=== PATIENT | female | born 1985 | race Caucasian/White ===

== ENCOUNTER 2018-03-13 23:12 | Outpatient (CLI) | payer OTHER | END 2018-03-13 23:13 | disposition critical access hospital (66) | LOC: EMS 23:12 | PROVIDERS: ATTEND Surgery | DX: R45.81 Low self-esteem (principal) | CPT/HCPCS: A0425; A0429 ==

== ENCOUNTER 2018-03-13 23:30 | Emergency (ER) | payer OTHER ==
[2018-03-13 23:57] LABS: MUDS CUTOFF CONCENTRATIONS CUTOFF CONC BELOW:
[2018-03-13 23:58] LABS: BILIRUBIN,URINE NEGATIVE (NEGATIVE); GLUCOSE, URINE (UA) NEGATIVE (NEGATIVE); KETONES,URINE (UA) NEGATIVE (NEGATIVE); LEUKOCYTE ESTERASE, URINE NEGATIVE (NEGATIVE); NITRITE,URINE NEGATIVE (NEGATIVE); OCCULT BLOOD,URINE NEGATIVE (NEGATIVE); PROTEIN,URINE NEGATIVE (NEGATIVE); UROBILINOGEN,URINE 0.2 (NORMAL) E.U./dL (NORMAL)
[2018-03-14] LABS: CLARITY,URINE CLEAR (CLEAR); HCG UR QUAL NEGATIVE
[2018-03-14 00:10] LABS: BASOPHILS # (AUTO) 0.1 10^3/uL (0.0-0.1); BASOPHILS % (AUTO) 0.5 %; EOSINOPHILS # (AUTO) 0.2 10^3/uL (0.0-0.7); EOSINOPHILS % (AUTO) 0.8 %; HGB - HEMOGLOBIN 14.6 g/dL (12.0-16.0); LYMPHOCYTES % (AUTO) 9.2 %; MEAN CORPUSCULAR HEMOGLOBIN 32.2 pg (27.0-31.0); MEAN CORPUSCULAR HGB CONC 34.1 g/dL (32.0-36.0); MEAN CORPUSCULAR VOLUME 94.4 fL (81.0-99.0); MEAN PLATELET VOLUME 7.9 fL (7.9-10.8); MONOCYTES # (AUTO) 1.4 10^3/uL (0.0-1.0); MONOCYTES % (AUTO) 6.5 %; NEUTROPHILS # (AUTO) 17.7 10^3/uL (1.5-6.6); PLT - PLATELET COUNT 292 10^3/uL (130-450); RED BLOOD COUNT 4.54 10^6/uL (4.20-5.40); RED CELL DISTRIBUTION WIDTH 12.6 % (12.0-15.0); WHITE BLOOD COUNT 21.4 x10^3/uL (4.8-10.8)
[2018-03-14 00:11] LABS: AMPHETAMINE SCREEN,URINE NEGATIVE (NEGATIVE); BENZODIAZEPINES SCREEN, URINE NEGATIVE (NEGATIVE); COCAINE SCREEN URINE NEGATIVE (NEGATIVE); METHADONE SCREEN, URINE NEGATIVE (NEGATIVE); METHAMPHETAMINES SCREEN, URINE NEGATIVE (NEGATIVE); OPIATE SCREEN, URINE NEGATIVE (NEGATIVE); OXYCODONE SCREEN, URINE NEGATIVE (NEGATIVE); PROPOXYPHENE SCREEN, URINE NEGATIVE (NEGATIVE); TRICYCLIC ANTIDEPRESSANT,URINE NEGATIVE (NEGATIVE)
[2018-03-14 00:22] LABS: ACETAMINOPHEN < 10 ug/mL (10-30); ALBUMIN 4.5 g/dL (3.2-5.5); ALBUMIN/GLOBULIN RATIO 1.3 (1.0-2.2); ALKALINE PHOSPHATASE 57 IU/L (42-121); ALT ALANINE AMINOTRANSFERASE 17 IU/L (10-60); AST ASPARTATE AMINOTRANSFERASE 22 IU/L (10-42); BILIRUBIN,TOTAL 0.4 mg/dL (0.2-1.0); BUN - BLOOD UREA NITROGEN 6 mg/dL (6-20); CALCIUM 9.1 mg/dL (8.5-10.3); CARBON DIOXIDE - CO2 24 mmol/L (21-32); CHLORIDE 107 mmol/L (101-111); CREATININE 0.6 mg/dL (0.4-1.0); GFR - MDRD 117 (>89); GLUCOSE 96 mg/dL (70-100); LIPASE 23 U/L (22-51); SALICYLATE < 6.0 mg/dL; SODIUM 140 mmol/L (135-145); TOTAL PROTEIN 7.9 g/dL (6.7-8.2)
--- NOTE | 2018-03-14 00:27 | ED Physician Documentation ---
PD HPI OVERDOSE - Stated complaint Stated Complaint: ? OD - Chief complaint Chief Complaint: MHE - History obtained from History obtained from: Patient, Friend, EMS - History of Present Illness Timing - onset: Unknown Subtance(s) ingested: Single, EtOH Associated symptoms: Decreased responsiveness, Altered mental status Similar symptoms before: Has not had sx before Recently seen: Not recently seen - Additional information Additional information: initial HPI from boyfriend and medics; reportedly, she was in a verbal argument (over phone) with boyfriend earlier tonight. she posted to social media a picture of a pill bottle with a caption that vaguely implied intent to self- harm. this post was reportedly then taken down. BF asked patient if she was going to kill herself, and she replied no, then yes. and thus he called 911. patient admits to drinking 6 beers and taking two flexeril, but denies suicidal intent. PD PAST MEDICAL HISTORY - Past Medical History Past Medical History: No - Past Surgical History Past Surgical History: Yes - Present Medications Home Medications: Ambulatory Orders Medication Instructions Recorded Confirmed Cyclobenzaprine [Flexeril] 10 mg PO 03/13/18 Ibuprofen 200 mg PO 03/13/18 Multivitamin [Multiple Vitamins] 1 each PO 03/13/18 - Allergies Allergies/Adverse Reactions: Allergies Allergy/AdvReac Type Severity Reaction Status Date / Time No Known Drug Allergies Allergy Verified 03/13/18 23:38 - Social History Does the pt smoke?: Yes Smoking Status: Current every day smoker Does the pt drink ETOH?: Yes Does the pt have substance abuse?: No - Immunizations Immunizations are current?: Yes - POLST Patient has POLST: No PD ED PE NORMAL - Vitals Vital signs reviewed: Yes - General General: Well developed/nourished - Cardiac Cardiac: RRR, No murmur - Respiratory Respiratory: No respiratory distress, Clear bilaterally - Abdomen Abdomen: Soft, Non tender PD ED PE EXPANDED - General General: Well developed/nourished, Lethargic, Unresponsive - HEENT HEENT: Other (pupils small/mid size but equal, sluggishly reactive) - Neuro Neuro: Obtunded - GCS Eye Opening: To Pain Motor: Localizes to Pain Verbal: None Total: 8 Results - Vitals Vitals: Vital Signs - 24 hr 03/14/18 06:20 Temperature 37.1 C Heart Rate 101 H Respiratory 18 Rate Blood Pressure 106/65 O2 Saturation 97 Oxygen O2 Source Room air - Labs Labs: Laboratory Tests 03/13/18 03/13/18 03/14/18 23:51 23:51 00:00 WBC RBC Hgb Hct MCV MCH MCHC RDW Plt Count MPV Neut # (Auto) Lymph # (Auto) [place] # (Auto) Eos # (Auto) Baso # (Auto) Absolute Nucleated RBC Nucleated RBC % Manual Slide Review Platelet Estimate Platelet Morphology RBC Morph Micro Appear Sodium 140 Potassium 3.6 Chloride 107 Carbon Dioxide 24 Anion Gap 9.0 BUN 6 Creatinine 0.6 Estimated GFR (MDRD) 117 Glucose 96 Calcium 9.1 Total Bilirubin 0.4 AST 22 ALT 17 Alkaline Phosphatase 57 Total Protein 7.9 Albumin 4.5 Globulin 3.4 Albumin/Globulin Ratio 1.3 Lipase 23 Urine Color YELLOW Urine Clarity CLEAR Urine pH 5.0 Ur Specific [place] <=1.005 Urine Protein NEGATIVE Urine Glucose (UA) NEGATIVE Urine Ketones NEGATIVE Urine Occult Blood NEGATIVE Urine Nitrite NEGATIVE Urine Bilirubin NEGATIVE Urine Urobilinogen 0.2 (NORMAL) Ur Leukocyte Esterase NEGATIVE Ur Microscopic Review NOT INDICATED Urine Culture Comments NOT INDICATED Urine HCG, Qual NEGATIVE Salicylates < 6.0 Urine Opiates Screen NEGATIVE Ur Oxycodone Screen NEGATIVE Urine Methadone Screen NEGATIVE Ur Propoxyphene Screen NEGATIVE Acetaminophen < 10 L Ur Barbiturates Screen NEGATIVE Ur Tricyclics Screen NEGATIVE Ur Phencyclidine Scrn NEGATIVE Ur Amphetamine Screen NEGATIVE U Methamphetamines Scrn NEGATIVE U Benzodiazepines Scrn NEGATIVE Urine Cocaine Screen NEGATIVE U Cannabinoids Screen NEGATIVE Ethyl Alcohol 258.3 03/14/18 00:00 WBC 21.4 H RBC 4.54 Hgb 14.6 Hct 42.9 MCV 94.4 MCH 32.2 H MCHC 34.1 RDW 12.6 Plt Count 292 MPV 7.9 Neut # (Auto) 17.7 H Lymph # (Auto) 2.0 [place] # (Auto) 1.4 H Eos # (Auto) 0.2 Baso # (Auto) 0.1 Absolute Nucleated RBC 0.00 Nucleated RBC % 0.0 Manual Slide Review Indicated Platelet Estimate NORMAL (130-450,000) Platelet Morphology NORMAL APPEARANCE RBC Morph Micro Appear NORMAL APPEARANCE Sodium Potassium Chloride Carbon Dioxide Anion Gap BUN Creatinine Estimated GFR (MDRD) Glucose Calcium Total Bilirubin AST ALT Alkaline Phosphatase Total Protein Albumin Globulin Albumin/Globulin Ratio Lipase Urine Color Urine Clarity Urine pH Ur Specific [place] Urine Protein Urine Glucose (UA) Urine Ketones Urine Occult Blood Urine Nitrite Urine Bilirubin Urine Urobilinogen Ur Leukocyte Esterase Ur Microscopic Review Urine Culture Comments Urine HCG, Qual Salicylates Urine Opiates Screen Ur Oxycodone Screen Urine Methadone Screen Ur Propoxyphene Screen Acetaminophen Ur Barbiturates Screen Ur Tricyclics Screen Ur Phencyclidine Scrn Ur Amphetamine Screen U Methamphetamines Scrn U Benzodiazepines Scrn Urine Cocaine Screen U Cannabinoids Screen Ethyl Alcohol PD MEDICAL DECISION MAKING - ED course Complexity details: reviewed results, re-evaluated patient, considered differential, d/w patient ED course: on my initial H&P, she is obtunded. she does not respond to voice, tactile ( withdraws). I hold her eyes open and this does not result in any meaningful response. VSS during ED stay, and within few hours, she rapidly became awake, alert. she completely denies to me that she sent any threatening posts to social media, she denies any intent of suicide or self-harm. she says she knows she shouldnt take flexeril and drink alcohol, says it was stupid but denies it was done as means of self-harm or suicide. discharged in the morning when she was clinically sober to [facility] command - Sepsis Event Vital Signs: Vital Signs - 24 hr 03/14/18 06:20 Temperature 37.1 C Heart Rate 101 H Respiratory 18 Rate Blood Pressure 106/65 O2 Saturation 97 Oxygen O2 Source Room air Departure - Departure Disposition: 01 Home, Self Care Clinical Impression: Alcoholic intoxication Condition: Good Instructions: ED Alcohol Intoxication Follow-Up: [facility] Praveena Briscoe [Provider Group] Comments: Your blood tests tonight show that you have a high white blood cell count. This is a nonspecific finding and might need repeat testing by your doctor. Please follow up with your physician in the next 2-3 days for reevaluation. If you develop fever or symptoms of an infection (such as sore throat, cough, urinary burning or frequency, abdominal pain, rash), please return to the emergency department. Discharge Date/Time: 03/14/18 07:13
[2018-03-14 00:50] LABS: PLATELET ESTIMATE, MANUAL NORMAL (130-450,000) (NORMAL); PLATELET MORPHOLOGY NORMAL APPEARANCE (NORMAL); RBC MORPHOLOGY (MULTIPLE) NORMAL APPEARANCE (NORMAL)
[2018-03-14 06:48] VITALS: BP 106/65
== END 2018-03-14 07:13 | disposition home or self-care (01) ==
LOC: EDUNIT# → ED 23:30
DX: F17.200 Nicotine dependence, unspecified, uncomplicated (principal); F10.129 Alcohol abuse with intoxication, unspecified
CPT/HCPCS: 36415; 80053; 80306; 80307; 80320; 80329; 81001; 81003; 81025; 83690; 85025; 87086; 99283

== ENCOUNTER 2021-12-17 09:10 | Emergency (ER) | payer OTHER ==
[2021-12-17 09:39] LABS: BASOPHILS # (AUTO) 0.1 10^3/uL (0.0-0.1); BASOPHILS % (AUTO) 0.4 %; EOSINOPHILS # (AUTO) 0.1 10^3/uL (0.0-0.7); EOSINOPHILS % (AUTO) 0.5 %; HCT - HEMATOCRIT 42.4 % (37.0-47.0); HGB - HEMOGLOBIN 14.6 g/dL (12.0-16.0); LYMPHOCYTES # (AUTO) 1.8 10^3/uL (1.5-3.5); LYMPHOCYTES % (AUTO) 15.6 %; MEAN CORPUSCULAR HEMOGLOBIN 32.2 pg (27.0-31.0); MEAN CORPUSCULAR HGB CONC 34.4 g/dL (32.0-36.0); MEAN CORPUSCULAR VOLUME 93.6 fL (81.0-99.0); MEAN PLATELET VOLUME 9.7 fL (7.9-10.8); MONOCYTES # (AUTO) 0.8 10^3/uL (0.0-1.0); NEUTROPHILS # (AUTO) 8.5 10^3/uL (1.5-6.6); NEUTROPHILS % (AUTO) 76.1 %; PLT - PLATELET COUNT 337 10^3/uL (130-450); RED BLOOD COUNT 4.53 10^6/uL (4.20-5.40); RED CELL DISTRIBUTION WIDTH 12.2 % (12.0-15.0); WHITE BLOOD COUNT 11.2 x10^3/uL (4.8-10.8)
--- NOTE | 2021-12-17 09:40 | XRAY Report ---
PROCEDURE: Chest 1 View X-Ray INDICATIONS: Chest pain TECHNIQUE: One view of the chest was acquired. COMPARISON: None. FINDINGS: Surgical changes and devices: None. Lungs and pleura: No pleural effusions or pneumothorax. Lungs are clear. Mediastinum: Mediastinal contours appear normal. Heart size is normal. Bones and chest wall: No suspicious bony lesions. Overlying soft tissues appear unremarkable. IMPRESSION: No acute cardiopulmonary process demonstrated radiographically. Reviewed by: Evangelista Turner MD on 12/17/2021 9:39 AM PDT Approved by: Evangelista Turner MD on 12/17/2021 9:39 AM PDT Station ID: [id number]
--- OUTSIDE RECORDS SUMMARY | 2021-12-17 09:41 | EXTERNAL MEDICAL SUMMARY RPT | Continuity of Care Document ---
:1985 Author Organization [facility] Address [address] [place] [address] Phone Care Team Providers Name Role Phone Botnick Unavailable Unavailable Allergies No information. Encounters No information. Medications No information. Problems Procedures date description facility 20211215 [facility] Results No information. Vital Signs date measurement value source 20211215 weight_standard 65.77 lb 20211215 weight_metric 29.83 kg 20211215 temperature_standard 97.1 F 20211215 temperature_metric 36.17 C 20211215 height_standard 65 in 20211215 height_metric 165.1 cm 20211215 BMI 24.1 kg/m2 20211216 respiration_rate 19 /min 20211216 heart_rate 80 /min 20211216 BP_systolic 115 mm[Hg] 20211216 BP_diastolic 71 mm[Hg]
[2021-12-17 09:54] LABS: ALBUMIN 4.6 g/dL (3.2-5.5); ALBUMIN/GLOBULIN RATIO 1.5 (1.0-2.2); BILIRUBIN,TOTAL 0.7 mg/dL (0.2-1.0); CALCIUM 9.7 mg/dL (8.5-10.3); CREATININE 0.6 mg/dL (0.4-1.0); POTASSIUM 4.1 mmol/L (3.5-5.0); TOTAL PROTEIN 7.6 g/dL (6.7-8.2)
--- NOTE | 2021-12-17 10:01 | ED Physician Documentation ---
PD HPI CHEST PAIN - Stated complaint Stated Complaint: CHEST PX RADIATING OUT - Chief complaint Chief Complaint: Cardiac - History obtained from History obtained from: Patient - History of Present Illness Timing - onset: How many days ago (several days) Timing - onset during: Light activity Timing - duration: Days (on and off for several days) Timing - details: Waxing and waning Quality: Pressure, Aching, Pain Location: Substernal, Epigastric Radiation: Back Worsened by: Eating (somewhat worse with eating), Movement. No: Exertion, Inspiration Associated symptoms: No: Shortness of air, Diaphoresis, Nausea, Cough Similar symptoms before: Has not had sx before Recently seen: Emergency Dept, Admitted (seen at [facility] for this and sent to [facility] due to abnormal ECG. There had labs, ECHO and stress test by cardiology with negative results.) Review of Systems Constitutional: denies: Fever, Chills Nose: denies: Rhinorrhea / runny nose, Congestion Throat: denies: Sore throat Cardiac: reports: Chest pain / pressure. denies: Palpitations, Pedal edema, Calf pain Respiratory: denies: Cough GI: denies: Abdominal Pain, Nausea, Vomiting Skin: denies: Rash, Lesions Musculoskeletal: denies: Neck pain, Back pain Neurologic: denies: Generalized weakness, Near syncope PD PAST MEDICAL HISTORY - Past Medical History Cardiovascular: None Respiratory: None Neuro: None Endocrine/Autoimmune: None GI: None - Past Surgical History Past Surgical History: Yes - Present Medications Home Medications: Ambulatory Orders Medication Instructions Recorded Confirmed Cyclobenzaprine [Flexeril] 10 mg PO 03/13/18 Ibuprofen 200 mg PO 03/13/18 Multivitamin [Multiple Vitamins] 1 each PO 03/13/18 Lidocaine Viscous 2% [Xylocaine 5 ml PO Q4H PRN #100 ml 12/17/21 Viscous 2%] Sucralfate [Carafate] 1 gm PO ACHS 5 Days #20 tablet 12/17/21 - Allergies Allergies/Adverse Reactions: Allergies Allergy/AdvReac Type Severity Reaction Status Date / Time No Known Drug Allergies Allergy Verified 12/17/21 09:21 - Living Situation Living Situation: reports: Alone Living Arrangement: reports: At home - Social History Does the pt smoke?: Yes Smoking Status: Current every day smoker Does the pt drink ETOH?: Yes Does the pt have substance abuse?: No - Family History Family history: reports: CAD - Immunizations Immunizations are current?: Yes - POLST Patient has POLST: No PD ED PE NORMAL - Vitals Vital signs reviewed: Yes - General General: Alert and oriented X 3, No acute distress, Well developed/nourished - HEENT HEENT: Moist mucous membranes, Pharynx benign - Neck Neck: Supple, no meningeal sign, No adenopathy - Cardiac Cardiac: RRR, No murmur - Respiratory Respiratory: Clear bilaterally - Abdomen Abdomen: Soft, Non tender - Derm Derm: Normal color, Warm and dry - Extremities Extremities: No tenderness to palpate, Normal ROM s pain, No edema, No calf tenderness / cord - Neuro Neuro: Alert and oriented X 3, No motor deficit, Normal speech Results - Vitals Vitals: Vital Signs - 24 hr 12/17/21 12/17/21 12/17/21 09:16 10:09 11:32 Temperature 36.5 C Heart Rate 736 H 73 65 Respiratory 16 15 14 Rate Blood Pressure 136/90 H 128/90 H 116/79 O2 Saturation 99 98 99 12/17/21 11:47 Temperature Heart Rate 66 Respiratory 16 Rate Blood Pressure 129/91 H O2 Saturation 96 Oxygen O2 Source Room air - EKG (time done) 09:16 Rate: Rate (enter#) (77) Rhythm: NSR [place]: Normal Intervals: Normal RI QRS: Normal Ischemia: Normal ST segments, T wave inversion (V1-V4). No: ST elevation c/w i schemia Compare to prior EKG: Unchanged from prior EKG (from [facility]) - Labs Labs: Laboratory Tests 12/17/21 12/17/21 12/17/21 09:35 09:35 09:35 WBC 11.2 H RBC 4.53 Hgb 14.6 Hct 42.4 MCV 93.6 MCH 32.2 H MCHC 34.4 RDW 12.2 Plt Count 337 MPV 9.7 Neut # (Auto) 8.5 H Lymph # (Auto) 1.8 [place] # (Auto) 0.8 Eos # (Auto) 0.1 Baso # (Auto) 0.1 Absolute Nucleated RBC 0.00 Nucleated RBC % 0.0 Sodium 137 Potassium 4.1 Chloride 102 Carbon Dioxide 25 Anion Gap 10.0 BUN 11 Creatinine 0.6 Estimated GFR (MDRD) 114 Glucose 129 H Calcium 9.7 Total Bilirubin 0.7 AST 20 ALT 15 Alkaline Phosphatase 76 Troponin I High Sens 11.9 Total Protein 7.6 Albumin 4.6 Globulin 3.0 Albumin/Globulin Ratio 1.5 Lipase 28 - Rads (name of study) chest xray Radiology: Prelim report reviewed (negative), See rad report PD MEDICAL DECISION MAKING - ED course Complexity details: reviewed old records, re-evaluated patient (some but not complete improvement with Mylanta. Review of records from [facility] shows normal labs, ECHO and treadmill stress. Presume esophagitis.), considered differential, d/w patient ED course: Chest pain persists over several days on and off, with Cardiology eval yesterday with negative ECHO, labs, and nonnuclear stress test. Dx with possible esophagitis/gastritis. Still negative Trop. ECG abnormal but unchanged. Low risk by PERC score=0. Departure - Departure Disposition: 01 Home, Self Care Clinical Impression: Chest discomfort Condition: Stable Instructions: ED Chest Pain NonCardiac Follow-Up: ANTWAN Briscoe [Provider Group] Prescriptions: Sucralfate [Carafate] 1 gm PO ACHS 5 Days #20 tablet Lidocaine Viscous 2% [Xylocaine Viscous 2%] 5 ml PO Q4H PRN #100 ml PRN Reason: Pain Comments: It does not appear that you have any heart related cause of the discomfort. Your chest x-ray is clear as well without looking like a lung process. Presume some irritation of the stomach and esophagus similar to what [facility] had assumed. Continue with your pantoprazole daily for the next 2 to 3 weeks. To that add sacral fate 4 times daily for the next 5 days to help coat the esophagus and stomach. You can also add antacid such as Maalox or Mylanta combined with the lidocaine orally to help with discomfort as well. Tylenol every 4-6 hours if needed for pains. Do not take any aspirin, ibuprofen, naproxen nor any spicy food coffee or alcohol for the next 3 to 5 days as they can further irritate the stomach. Recheck if not improved well over the next few days. Off work today and tomorrow. Forms: Activity restrictions Discharge Date/Time: 12/17/21 11:47
[2021-12-17] MEDS ORDERED: LIDOCAINE VISCOUS 2% 15 ML UDC MM STA (10:42)
[2021-12-17] MEDS ORDERED: MAG HYDROX/AL HYDROX/SIMETH 30 ML UDC PO STA (10:42)
[2021-12-17 11:52] VITALS: BP 129/91
== END 2021-12-17 11:47 | disposition home or self-care (01) ==
LOC: ED 09:10
DX: R07.89 Other chest pain (principal); F17.200 Nicotine dependence, unspecified, uncomplicated
CPT/HCPCS: 36415; 71045; 80053; 83690; 84484; 85025; 93005; 99284; A9270

== ENCOUNTER 2023-04-26 11:48 | Emergency (ER) | payer OTHER ==
[2023-04-26 12:16] VITALS: BP 130/83
[2023-04-26] MEDS ORDERED: PROPARACAINE 0.5% OPHTH DROPS 15 ML EACHEYE STA (12:50)
[2023-04-26] MEDS ORDERED: ERYTHROMYCIN OPHTH OINT 1 GM TUBE LEFTEYE STA (13:14)
--- NOTE | 2023-04-26 13:19 | ED Physician Documentation ---
History of Present Illness - Stated complaint Stated Complaint: EYE INJURY - Chief complaint Chief Complaint: Heent - Additonal information Additional information: 38-year-old female presents emergency department for evaluation of acute left eye pain/injury. She states she was standing yesterday afternoon when she thinks some debris or even wood particles may have fallen into the left eye. She was not wearing safety glasses. She reports irrigating her eyes with water at home but since then they have continued to be somewhat painful and teary. She reports blurry vision. States she thinks that she has a foreign body sensation in the right upper medial side of her lid. Does not wear contact lenses. Review of Systems Eyes: reports: Discharge, Irritation. denies: Loss of vision, Decreased vision PD PAST MEDICAL HISTORY - Past Medical History Past Medical History: Yes Cardiovascular: None Respiratory: None Neuro: None Endocrine/Autoimmune: None GI: None - Past Surgical History Past Surgical History: Yes - Present Medications Home Medications: Ambulatory Orders Medication Instructions Recorded Confirmed Cyclobenzaprine [Flexeril] 10 mg PO 03/13/18 Ibuprofen 200 mg PO 03/13/18 Multivitamin [Multiple Vitamins] 1 each PO 03/13/18 Lidocaine Viscous 2% [Xylocaine 5 ml PO Q4H PRN #100 ml 12/17/21 Viscous 2%] Sucralfate [Carafate] 1 gm PO ACHS 5 Days #20 tablet 12/17/21 - Allergies Allergies/Adverse Reactions: Allergies Allergy/AdvReac Type Severity Reaction Status Date / Time No Known Drug Allergies Allergy Verified 04/26/23 12:14 - Social History Does the pt smoke?: Yes Smoking Status: Current every day smoker Does the pt drink ETOH?: Yes Does the pt have substance abuse?: No - Immunizations Immunizations are current?: Yes - POLST Patient has POLST: No PD ED PE EXPANDED - Eyes Eyes: Injected conj/sclera (Left eye), Anterior chambers clear. No: Eyelid injury, Eyelid swelling, Eyelid erythema, Corneal abrasion, Corneal ulcer, Fluorescein uptake Results - Vitals Vitals: Vital Signs - 24 hr 04/26/23 12:09 Temperature 36.8 C Heart Rate 93 Respiratory 16 Rate Blood Pressure 130/83 H O2 Saturation 100 Oxygen O2 Source Room air PD Medical Decision Making - ED course Complexity details: reviewed results, re-evaluated patient ED course: advised to apply erythromycin ointment to the eye 2-3 times daily for the next several days. Use a cool compress for discomfort. She will follow with ophthalmology this upcoming week. The usual emergent return precautions for worsening symptoms was discussed 38-year-old female here with acute left eye pain and watering after standing above her head and feeling some debris and particles falling to the left eye yesterday. She irrigated at home but has continued to have watering and some discomfort. There is no loss of vision. On exam she has clear anterior chambers. Negative fluorescein staining. Extraocular movements were intact. No obvious findings of conjunctival ulceration or abrasion. No foreign body was seen. At this time I suspect she likely has injection and inflammation simply from constantly rubbing her eyes and the water irrigations. Patient Departure - Departure Disposition: 01 Home, Self Care Clinical Impression: Irritation of left eye Condition: Stable Record reviewed to determine appropriate education?: Yes Comments: Maya apply the erythromycin ointment to your left eye 2-3 times a day for the next several days. I want to encourage you to avoid rubbing the eye at all costs. If you find it is uncomfortable place a cool compress over it for about 5 minutes. I suspect you have some left eye irritation simply from your irrigation of the eye as well as rubbing it. There was no obvious finding of foreign body or ulceration/abrasion on exam today. Please follow-up with your search engine optimizer this upcoming week. Return to the ER if you are having worsening symptoms.
== END 2023-04-26 13:25 | disposition home or self-care (01) ==
LOC: ED 11:48
DX: H57.89 Other specified disorders of eye and adnexa (principal); F17.200 Nicotine dependence, unspecified, uncomplicated
CPT/HCPCS: 99282; 99283; J3490